=== PATIENT | male | born 1990 | race Caucasian/White ===

== ENCOUNTER 2017-08-02 10:21 | Emergency (ER) | payer OTHER ==
--- NOTE | 2017-08-02 10:30 | UC ---
Ear Complaint HPI - HPI Summary HPI Summary: 27 YEAR OLD MALE PRESENTS WITH RIGHT SIDED EAR PAIN AND FEVER. - History of Current Complaint Stated Complaint: EAR PAIN Time Seen by Provider: 08/02/17 10:29 Hx Obtained From: Patient Onset/Duration: Sudden Onset Severity Initially: Moderate Severity Currently: Moderate Pain Scale Used: 0-10 Numeric - 8 - Allergies/Home Medications Allergies/Adverse Reactions: Allergies Allergy/AdvReac Type Severity Reaction Status Date / Time [place] Allergy throat Verified 08/02/17 10:36 close up [place] Allergy throat Verified 08/02/17 10:36 closes up PMH/Surg Hx/FS Hx/Imm Hx Previously Healthy: Yes Review of Systems Constitutional: Negative Skin: Negative Eyes: Negative ENT: Ear Ache Respiratory: Negative Cardiovascular: Negative Gastrointestinal: Negative Genitourinary: Negative Motor: Negative Neurovascular: Negative Musculoskeletal: Negative Neurological: Negative Psychological: Negative All Other Systems Reviewed And Are Negative: Yes Physical Exam Triage Information Reviewed: Yes Appearance: Well-Appearing Eye Exam: Normal ENT: Positive: Other: - RIGHT EXTERNAL EAR ERYTHEMA Dental Exam: Normal Neck exam: Normal Neck: Positive: 1 Respiratory Exam: Normal Cardiovascular Exam: Normal Abdominal Exam: Normal Musculoskeletal Exam: Normal Neurological Exam: Normal Psychological Exam: Normal Skin Exam: Normal Ear Complaint Course/Dx - Differential Dx/Diagnosis Provider Diagnoses: RIGHT OTITIS EXTERNA Discharge - Discharge Plan Condition: Stable Disposition: HOME Prescriptions: Amoxicillin PO (*) [Amoxicillin 875 MG (*)] 875 mg PO BID #20 tab Neomyc/Polym/HC 1% OTIC SUSP* [Cortisporin Otic Susp 1%*] 4 drop RIGHT EAR QID # 1 btl Patient Education Materials: Otitis Externa (ED)
[2017-08-02 10:39] VITALS: BP 128/85
== END 2017-08-02 10:50 | disposition home or self-care (01) ==
LOC: UCEAST 10:21
DX: H60.91 Unspecified otitis externa, right ear (principal)
CPT/HCPCS: 99202; G0463